=== PATIENT | male | born 1970 | race Caucasian/White ===

== ENCOUNTER 2022-06-14 08:14 | Outpatient (CLI) | payer BC, SELFPAY ==
--- NOTE | ~2022-06-14 | CT_ITS ---
Non-contrast CT scan of the Abdomen and Pelvis Clinical indication: Left groin pain Technique: 2.5 mm axial scans were obtained through the abdomen and pelvis without intravenous or or al contrast. Dose reduction technique was used on this scan by utilizing automated exposure control a nd iterative reconstruction technique. The dose-length product (DLP) was 382.37 mGy-cm. Findings: Images through the lung bases reveal no abnormalities. There is no evidence of renal or ureteral calculi. The kidneys and the ureters are nondilated. The liver, spleen, pancreas, gallbladder, and adrenals appear normal. There is no aortic aneurysm. There is no evidence of bowel obstruction. Images through the pelvis were performed. There is no evidence of ascites or lymphadenopathy. Urinary bladder unremarkable. Prostate gland and seminal vesicles are unremarkable. Bilateral L5 pars intera rticularis defects are present, with 6 mm anterolisthesis of L5 over S1. Impression: No acute abnormality. Bilateral L5 pars interarticularis defects, with 6 mm anterolisthesis of L5 over S1. Reviewed, dictated and finalized at [facility]. [employer] Impression: No acute abnormality. Bilateral L5 pars interarticularis defects, with 6 mm anterolisthesis of L5 ove r S1.
== END 2022-06-14 08:15 ==
LOC: MICIMG 08:16
PROVIDERS: PCP Surgery; Visit Provider Surgery
DX: R10.32 Left lower quadrant pain (principal)
CPT/HCPCS: 74176

== ENCOUNTER 2022-12-07 07:50 | Outpatient (CLI) | payer BC, SELFPAY ==
--- NOTE | ~2022-12-07 | MR_ITS ---
EXAMINATION: MR shoulder RT wo con DATE: 12/07/2022 08:29 INDICATION: Right shoulder pain and limited range of motion post twisting injury 3 weeks prior with a udible pop. TECHNIQUE: Magnetic resonance imaging (MRI) of the right shoulder was performed without intravenous c ontrast. Sequences included axial PD-weighted FS FSE, coronal oblique PD-weighted FS FSE, coronal obl ique T2-weighted FS FSE, sagittal PD-weighted FS FSE, and sagittal T1-weighted SE. COMPARISON: None. FINDINGS: Coracoacromial arch: The acromion undersurface is curved in morphology (type II). The coracoacromial ligament is normal. M ild to moderate acromioclavicular osteoarthritis with small inferiorly directed osteophyte at the lat eral head of the clavicle which is mild mass effect upon the underlying supraspinatus muscle and tend on. Rotator cuff: Focal moderate infraspinatus tendinopathy with small tear including full-thickness component along th e middle facet footplate. The tear measures approximately 7 mm AP although the full-thickness compone nt is evident only on a single coronal image suggesting a smaller AP with the full-thickness componen t of the tear. There is only minimal medial retraction, greatest on the bursal side were it measures approximately 4-5 mm. Mild supraspinatus tendinopathy without tear. The teres minor tendon is normal. Mild subscapularis tendinopathy with small partial-thickness intrasubstance tear extending 9 mm cran iocaudally along the lesser tuberosity footplate and which appears to involve no greater than one thi rd of the tendon thickness. Normal rotator cuff muscle bulk and signal. Biceps tendon, glenoid labrum and glenohumeral cartilage: Mild tendinopathy without discrete tear of the intra-articular portion of the long head biceps tendon . There is a tear of the superior glenoid labrum beginning anteriorly at the 1:00 position extending posteriorly to the 10:00 position. There appears to be diffuse mild partial-thickness cartilage loss along the glenoid and along the inferomedial aspect of the humeral head with smooth chondral surface. Fluid: Physiologic amount of fluid in the glenohumeral joint and biceps tendon sheath. No loose osteochondr al bodies. Mild increased fluid signal in the subacromial/subdeltoid bursa consistent with mild bursi tis. Bones: Bone alignment is normal with no fracture or pathologic marrow replacing process. 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 IMPRESSION: 1. Moderate infraspinatus tendinopathy with very small full-thickness tear along the middle facet jose martin tplate. 2. Mild subscapularis tendinopathy with small intrasubstance tear along the lesser tuberosity footpla te. 3. Mild glenohumeral osteoarthritis with tear of the superior glenoid labrum. 4. Moderate acromioclavicular osteoarthritis with mild underlying subacromial/subdeltoid bursitis. 5. Mild tendinopathy without tear of the intra-articular long head biceps tendon. Reviewed, dictated and finalized at [facility]. IMPRESSION: 1. Moderate infraspinatus tendinopathy with very small full-thickness tear marquez g the middle facet footplate. 2. Mild subscapularis tendinopathy with small intrasubstance tear along the les ser tuberosity footplate. 3. Mild glenohumeral osteoarthritis with tear of the superior glenoid labrum. 4. Moderate acromioclavicular osteoarthritis with mild underlying subacromial/s ubdeltoid bursitis. 5. Mild tendinopathy without tear of the intra-articular long head biceps tendo n.
== END 2022-12-07 07:51 ==
LOC: MICIMG 07:52
DX: S46.011A Strain of muscle(s) and tendon(s) of the rotator cuff of right shoulder, initial encounter (principal); M19.011 Primary osteoarthritis, right shoulder; X58.XXXA Exposure to other specified factors, initial encounter
CPT/HCPCS: 73221